=== PATIENT | male | born 1995 | race Caucasian/White ===

== ENCOUNTER 2021-02-21 16:48 | Emergency (ER) | payer BC ==
[~2021-02-21] VITALS: Ht 177.8 cm; Wt 121.2 kg
[2021-02-21] MEDS ORDERED: ONDANSETRON 4MG/2ML VIAL IV ONE (17:55)
[2021-02-21] MEDS ORDERED: FAMOTIDINE 20 MG TAB PO ONE (18:35)
[2021-02-21] MEDS ORDERED: predniSONE 20 MG TAB PO ONE (18:35)
[2021-02-21] MEDS ORDERED: FAMO20TA PO (20:10)
[2021-02-21] MEDS ORDERED: EPIP0.3I2 IM (20:10)
[2021-02-21] MEDS ORDERED: PRED20TA PO (20:10)
[2021-02-21 20:13] VITALS: BP 151/62
== END 2021-02-21 20:41 | disposition home or self-care (01) ==
LOC: M ED 16:48 → CANBEDREQ 19:15 → M ED 20:41
DX: T78.00XA Anaphylactic reaction due to unspecified food, initial encounter (principal); Y92.9 Unspecified place or not applicable; Y93.9 Activity, unspecified
CPT/HCPCS: 96374; 99284; J2405; J7512